=== PATIENT | female | born 1990 | race Caucasian/White ===

== ENCOUNTER 2023-06-17 22:05 | Emergency (ER) | payer MEDICAID ==
[2023-06-17] MEDS ORDERED: Take Home: Naproxen 500 MG Tab, 4 Tab Pack PO ONE (23:24)
== END 2023-06-17 23:40 | disposition home or self-care (01) ==
LOC: VM.ED 22:05
DX: S00.83XA Contusion of other part of head, initial encounter (principal); S20.319A Abrasion of unspecified front wall of thorax, initial encounter; Y04.2XXA Assault by strike against or bumped into by another person, initial encounter
CPT/HCPCS: 70450; 71046; 72125; 99284; A9270-GY